=== PATIENT | male | born 1945 | race Caucasian/White ===

== ENCOUNTER 2016-09-25 09:46 | Emergency (ER) | payer OTHER ==
[~2016-09-25] VITALS: Ht 170.2 cm; Wt 62.6 kg
--- NOTE | ~2016-09-25 | EKG ---
PATIENT: ZAINAB ROBERTSON UNIT #: [id number] Ventricular Rate: 78 BPM Atrial Rate: 78 BPM P-R Interval: 222 ms QRS Duration: 86 ms Q-T Interval: 376 ms QTC Calculation(Bezet): 428 ms P Raymond: 54 degrees Calculated R Raymond: 53 degrees Calculated T Raymond: 98 degrees Diagnosis Line: Sinus rhythm with 1st degree A-V block Diagnosis Line: ST elevation consider inferior injury or acute Diagnosis Line: infarct Diagnosis Line: ACUTE SC / STEMI infero-posterior wall Diagnosis Line: SC Diagnosis Line: Consider right ventricular involvement in acute Diagnosis Line: inferior infarct Diagnosis Line: Abnormal ECG Diagnosis Line: No previous ECGs available Diagnosis Line: Confirmed by PHILIP DALY MD ([id number]) on 09/26/2016 Diagnosis Line: 5:53:33 PM INTERPRETING MD: MALIKA GARCIA
--- NOTE | ~2016-09-25 | CR72 ---
[facility] A Service of [facility] & [facility] RADIOLOGY TEXT RESULTS PATIENT: ZAINAB ROBERTSON LOCATION: [facility] : 47 UNIT #: [id number] AGE: [address]: Adina Davalos MD SEX: M ORDER DR: [id number] [facility] [place] [facility] [address] [place], [place] [address] [id number] E MR#: [id number] Acc #: [id number] NAME: ZAINAB ROBERTSON : 1945 SEX: M STUDY DATE/TIME: 09/25/2016 10:22 UNIT: [facility] ROOM: STUDY DESCRIPTION: CR Chest Single View Portable Attending Physician: Adina Davalos M.D. Ordering Physician: Adina Davalos M.D. Primary Care Physician: Ruben Shane M.D. MEDICAL IMAGING REPORT This report is preliminary unless electronic signature is present EXAM Portable chest dated 09/25/2016. CLINICAL HISTORY Chest pain for 1 hour. COMPARISON None. FINDINGS Mild cardiomegaly, otherwise negative. There is no consolidation, effusion, pneumothorax or suspicious nodule. Lungs are well-aerated. IMPRESSION Mild cardiomegaly. Dictated by... Chase Rush M.D. THIS IS AN ELECTRONICALLY VERIFIED REPORT Chase Rush M.D. at 09/30/2016 5:03 PM TEV/pc TD: 09/25/2016 14:04 JOB #: [id number] MEDICAL IMAGING REPORT Page 1 of 1 COPY
--- NOTE | ~2016-09-25 | CR72 ---
[facility] A Service of [facility] & [facility] RADIOLOGY TEXT RESULTS PATIENT: ZAINAB ROBERTSON LOCATION: [facility] : 47 UNIT #: [id number] AGE: [address]: Adina Davalos MD SEX: M ORDER DR: [id number] [facility] [address] [place], [place] [address] [id number] E MR#: [id number] Acc #: [id number] NAME: ZAINAB ROBERTSON : 1945 SEX: M STUDY DATE/TIME: 09/25/2016 10:43 UNIT: [facility] ROOM: STUDY DESCRIPTION: CR Chest Single View Portable Attending Physician: Adina Davalos M.D. Ordering Physician: Adina Davalos M.D. Primary Care Physician: Ruben Shane M.D. MEDICAL IMAGING REPORT This report is preliminary unless electronic signature is present EXAM Portable AP view of the chest COMPARISON September 25, 2016 at 10:22 a.m. INDICATION 71-year-old male with chest pain and diaphoresis post myocardial infarction today. Respiratory failure requiring intubation today. FINDINGS Endotracheal tube tip terminates approximately 2.3 cm above the [place]. Evaluation of the chest is limited by rightward patient rotation. No evidence of pneumothorax, pleural effusion or acute airspace disease. Cardiomediastinal silhouette is likely within normal limits for patient rotation. IMPRESSION Adequate position of new endotracheal tube terminating approximately 2.3 cm above the [place]. No acute airspace disease. Dictated by... Benigno Casper M.D. THIS IS AN ELECTRONICALLY VERIFIED REPORT Benigno Casper M.D. at 09/27/2016 10:12 PM Brittny TD: 09/25/2016 14:21 JOB #: [id number] MEDICAL IMAGING REPORT Page 1 of 1 COPY
[2016-09-25 10:26] LABS: POC - CKMB <1.0 ng/mL (0.0-7.9); POC - TROPONIN <0.05 ng/mL (<=0.05)
[2016-09-25 11:26] LABS: BASOPHIL% 0.3 % (0-2.5); EOSINOPHIL# 0.1 X10e3 (0-0.7); EOSINOPHIL% 1.1 % (0.0-7.0); HEMATOCRIT 47.2 % (38.0-50.0); HEMOGLOBIN 16.1 gm/dL (13.0-16.0); LYMPHOCYTE# 4.1 X10e3 (1.0-3.5); LYMPHOCYTE% 42.9 % (17.0-45.0); MEAN CELL VOLUME 95.2 FL (83-96); MEAN CORPUSCULAR HEMOGLOBIN 32.6 PG (28-34); MEAN CORPUSCULAR HGB CONC 34.2 g/dL (30-36); MEAN PLATELET VOLUME 8.9 FL (6.5-11.5); MONOCYTE# 1.1 X10e3 (0-1.0); NEUTROPHIL# 4.3 X10e3 (1.5-7.1); NEUTROPHIL% 44.7 % (40-75); PLATELET COUNT 258 X10e3 (140-420); RED BLOOD COUNT 4.95 X10e (3.90-5.60); RED CELL DISTRIBUTION WIDTH 13.3 % (11.0-15.5); WHITE BLOOD COUNT 9.6 X10e3 (4.0-10.5)
[2016-09-25 11:36] LABS: DIFF IND NO
[2016-09-25 11:43] LABS: PROTHROMBIN TIME (PATIENT) 10.9 SECONDS (10.0-11.7)
[2016-09-25 11:47] LABS: BUN/CREATININE RATIO 19.16; CALCIUM SERUM 9.5 mg/dL (8.4-10.2); CREATININE SERUM 1.2 mg/dL (0.6-1.4); GLOM FILT RATE Estimated 60.9 mL/min (>60); POTASSIUM 3.7 mmol/L (3.5-5.1)
== END 2016-09-25 10:50 | disposition short-term general hospital (02) ==
LOC: CED 09:46 → CFTX 10:23 → CED 10:23
PROVIDERS: Emergency Medicine
DX: I21.19 ST elevation (STEMI) myocardial infarction involving other coronary artery of inferior wall (principal); I46.2 Cardiac arrest due to underlying cardiac condition; I49.01 Ventricular fibrillation; I10 Essential (primary) hypertension; Z88.2 Allergy status to sulfonamides; Z88.5 Allergy status to narcotic agent; Z88.8 Allergy status to other drugs, medicaments and biological substances
CPT/HCPCS: 31500; 36415; 71010; 80048; 82553; 84484; 85025; 85610; 92950; 93005; 96361; 96374; 96375; 99291; J1170; J1644; J2250

== ENCOUNTER 2016-10-09 13:54 | Emergency (ER) | payer OTHER ==
[~2016-10-09] VITALS: Ht 172.7 cm; Wt 61.2 kg
[2016-10-09 15:30] LABS: URINE SOURCE CLEAN CATCH
[2016-10-09 15:34] LABS: URINE APPEARANCE CLEAR; URINE BILIRUBIN NEG (NEG); URINE BLOOD 3+ (NEG); URINE COLOR RED; URINE GLUCOSE NEG (NEG); URINE KETONE NEG (NEG); URINE LEUKOCYTE ESTERASE 2+ (NEG); URINE NITRATE NEG (NEG); URINE PROTEIN 2+ (NEG); URINE SPECIFIC GRAVITY 1.005 (1.003-1.035); URINE UROBILINOGEN 0.2 MG/DL (NEG)
[2016-10-09 15:36] LABS: CULTURE INDICATED? YES; URBCS1 AUWI 100-200 /[HPF] (0-2); URINE BACTERIA AUWI NEG (NEGATIVE); URINE SQUAMOUS EPITHELIAL CELL OCC /[HPF]
[2016-10-09 16:41] LABS: POC - CKMB 1.1 ng/mL (0.0-7.9); POC - TROPONIN <0.05 ng/mL (<=0.05)
[2016-10-09 16:46] LABS: BASOPHIL# 0.1 X10e3 (0-0.3); BASOPHIL% 0.7 % (0-2.5); EOSINOPHIL# 0.3 X10e3 (0-0.7); EOSINOPHIL% 3.2 % (0.0-7.0); HEMATOCRIT 40.3 % (38.0-50.0); HEMOGLOBIN 13.7 gm/dL (13.0-16.0); LYMPHOCYTE# 1.1 X10e3 (1.0-3.5); LYMPHOCYTE% 14.5 % (17.0-45.0); MEAN CELL VOLUME 93.6 FL (83-96); MEAN CORPUSCULAR HEMOGLOBIN 31.8 PG (28-34); MEAN CORPUSCULAR HGB CONC 33.9 g/dL (30-36); MEAN PLATELET VOLUME 8.6 FL (6.5-11.5); MONOCYTE# 0.7 X10e3 (0-1.0); MONOCYTE% 8.6 % (3.0-12.0); NEUTROPHIL# 5.7 X10e3 (1.5-7.1); PLATELET COUNT 350 X10e3 (140-420); RED BLOOD COUNT 4.31 X10e (3.90-5.60); RED CELL DISTRIBUTION WIDTH 13.5 % (11.0-15.5); WHITE BLOOD COUNT 7.9 X10e3 (4.0-10.5)
[2016-10-09 16:47] LABS: DIFF IND NO
[2016-10-09 17:07] LABS: ALBUMIN SERUM 3.6 g/dL (3.5-5.0); BILIRUBIN, DIRECT 0.3 mg/dL (0.0-0.2); BILIRUBIN,INDIRECT 1.4 mg/dL (0.0-0.9); BILIRUBIN,TOTAL 1.7 mg/dL (0.2-2.0); BUN/CREATININE RATIO 7.69; CALCIUM SERUM 8.8 mg/dL (8.4-10.2); CREATININE SERUM 1.3 mg/dL (0.6-1.4); GLOM FILT RATE Estimated 55.3 mL/min (>60); POTASSIUM 4.2 mmol/L (3.5-5.1); PROTEIN TOTAL SERUM 6.5 g/dL (6.0-8.3)
== END 2016-10-09 17:42 | disposition home or self-care (01) ==
LOC: CED 13:54
PROVIDERS: Emergency Medicine
DX: R31.0 Gross hematuria (principal); R10.9 Unspecified abdominal pain; I10 Essential (primary) hypertension; Z88.5 Allergy status to narcotic agent; Z88.2 Allergy status to sulfonamides
CPT/HCPCS: 36415; 80048; 80076; 81003; 82553; 84484; 85025; 87086; 99283